=== PATIENT | female | born 1995 | race Two or more races ===

== ENCOUNTER → 2017-08-10 | Emergency (ER) | payer OTHER ==
[~2017-08-10] VITALS: Ht 170.2 cm; Wt 65.8 kg
[~2017-08-10] MED LIST: ANAPROX275 MG; AZITHROMYCIN500 MG PO; DIALYVITE 800-1 EACH; IMODIUM A-D2 MG PO; KETO10TA2 PO; PEPCID40 MG PO; PRENATAL + DHA1 EAC1
== END | disposition home or self-care (01) ==
LOC: ER 23:47
DX: H66.91 Otitis media, unspecified, right ear (principal)

== ENCOUNTER 2017-11-21 19:42 | Outpatient (CLI) | payer OTHER | END 2017-11-22 11:45 | disposition home or self-care (01) | LOC: OBS/DEL 19:42 | DX: O46.8X2 Other antepartum hemorrhage, second trimester (principal); O60.02 Preterm labor without delivery, second trimester; O26.893 Other specified pregnancy related conditions, third trimester; N93.0 Postcoital and contact bleeding; K59.09 Other constipation; Z34.02 Encounter for supervision of normal first pregnancy, second trimester ==

== ENCOUNTER 2018-02-02 15:36 | Inpatient (IN) | payer OTHER ==
[~2018-02-02] VITALS: Ht 170.2 cm; Wt 3.2 kg
== END 2018-03-06 11:02 | DRG 788 ==
LOC: LDR 03-02 05:44 → OB/GYN 03-02 05:44 → O/R 03-03 10:35 → OB/GYN 03-03 13:19
PROVIDERS: Specialist
PROC: 4A1HXCZ Monitoring of Products of Conception, Cardiac Rate, External Approach (ICD-10-PCS; 2018-03-02)
PROC: 3E033VJ Introduction of Other Hormone into Peripheral Vein, Percutaneous Approach (ICD-10-PCS; 2018-03-03)
PROC: 10D00Z1 Extraction of Products of Conception, Low, Open Approach (ICD-10-PCS; principal; 2018-03-03 09:00)
DX: O61.0 Failed medical induction of labor (principal); O33.8 Maternal care for disproportion of other origin; Z3A.40 40 weeks gestation of pregnancy; Z37.0 Single live birth

== ENCOUNTER 2018-04-04 23:56 | Emergency (ER) | payer OTHER ==
[~2018-04-04] VITALS: Ht 170.2 cm; Wt 72.6 kg
[2018-04-05] MEDS ORDERED: CEFUROXIME500 MG PO (08:27)
== END 2018-04-05 08:59 | disposition home or self-care (01) ==
LOC: ER 23:56
DX: N61.1 Abscess of the breast and nipple (principal)